=== PATIENT | female | born 2000 | race African-American/Black ===

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

== ENCOUNTER 2019-01-07 10:01 | Emergency (ER) | payer SELFPAY ==
[~2019-01-07] VITALS: Ht 160 cm; Wt 44.5 kg
[2019-01-07 10:23] VITALS: BP 107/58
--- NOTE | 2019-01-07 11:03 | PHYS DOC ---
Past Medical History Past Medical History: No Pertinent History Past Surgical History: No Surgical History Alcohol Use: None Drug Use: None Adult General Chief Complaint Chief Complaint: BACK PAIN - NO INJURY [facility] HPI Patient is a 18 year old AA female who presents to the emergency Department today with complaints of left lower back pain for the last week. Patient denies any known injury, fall, or trauma. She only rates the pain an 8 out of 10 on the pain scale, there are no alleviating factors. The pain increases with palpation. ROS Patient denies any fever, dysuria, hematuria, nausea, vomiting, or diarrhea. She denies any irregular vaginal discharge. Patient reports increased urinary frequency with the onset of the back pain. She denies any numbness, tingling, or weakness of her lower extremities. She denies any radiation of the back pain into her left leg. Patient also denies any cough, shortness of breath, ear pain, sore throat, or weakness. All other ROS is neg unless otherwise noted in HPI. Review of Systems Review of Systems See Above Allergies Allergies Allergies Coded Allergies Type Severity Reaction Last Updated Verified No Known Drug Allergies 03/21/14 No Physical Exam Physical Exam See Above Constitutional: Well developed, well nourished, no acute distress, non-toxic appearance. [] HENT: Normocephalic, atraumatic, bilateral external ears normal, oropharynx moist, no oral exudates, nose normal. [] Eyes: PERRLA, EOMI, conjunctiva normal, no discharge. [] Neck: Normal range of motion, no stridor. [] Cardiovascular:Heart rate regular rhythm, no murmur [] Lungs & Thorax: Bilateral breath sounds clear to auscultation [] Skin: Warm, dry, no erythema, no rash. [] Back: No bony tenderness, L CVA tenderness. [] Extremities: No cyanosis, ROM intact, no edema. [] Neurologic: Alert and oriented X 3, no focal deficits noted. [] Psychologic: Affect normal, judgement normal, mood normal. [] Current Patient Data Vital Signs Vital Signs Date Time Temp Pulse Resp B/P (MAP) Pulse Ox O2 Delivery O2 Flow Rate FiO2 01/07/19 10:23 99.0 104 18 107/58 (74) 99 Room Air 99.0 Lab Values Laboratory Tests Test 01/07/19 10:55 01/07/19 10:58 Urine Collection Type Void Urine Color Misty Urine Clarity Cloudy Urine pH 6.0 Urine Specific [place] 1.020 Urine Protein 30 mg/dL (NEG-TRACE) Urine Glucose (UA) Negative mg/dL (NEG) Urine Ketones (Stick) Negative mg/dL (NEG) Urine Blood Negative (NEG) Urine Nitrite Negative (NEG) Urine Bilirubin Small (NEG) Urine Urobilinogen Dipstick 1.0 mg/dL (0.2 mg/dL) Urine Leukocyte Esterase Large (NEG) Urine RBC 0 /HPF (0-2) Urine WBC Tntc /HPF (0-4) Urine Squamous Epithelial Cells Occ /LPF Urine Bacteria Moderate /HPF (0-FEW) POC Urine HCG, Qualitative Hcg negative (Negative) EKG EKG [] Radiology/Procedures Radiology/Procedures [] Course & Med Decision Making Course & Med Decision Making Pertinent Labs and Imaging studies reviewed. (See chart for details) [] Dragon Disclaimer Dragon Disclaimer This electronic medical record was generated, in whole or in part, using a voice recognition dictation system. Departure Departure Impression: Primary Impression: Urinary tract infection Disposition: HOME, SELF-CARE Condition: STABLE Referrals: NO PCP (PCP) Patient Instructions: Urinary Tract Infection, [id number] Additional Instructions: Fill prescription(s) and use as directed. Avoid bladder irritants such as caffeine, carbonation, and spicy foods. Increase clear fluids. Follow up with your primary care doctor if symptoms persist, return to the ER if symptoms worsen. Scripts Cephalexin (CEPHALEXIN) 500 Mg Capsule 1 CAP PO BID for 7 Days, #14 CAP 0 Refills Prov: SAHARA SIMON FERRY ENGINEER 01/07/19 Problem Qualifiers Primary Impression: Urinary tract infection Urinary tract infection type: site unspecified Hematuria presence: without hematuria Qualified Codes: N39.0 - Urinary tract infection, site not specified SAHARA SIMON FERRY ENGINEER Jan 07, 2019 11:03
[2019-01-07 11:09] LABS: BILIRUBIN,URINE SMALL (NEG); CLARITY,URINE CLOUDY; COLOR,URINE AMBER; NITRITE,URINE NEGATIVE (NEG); PROTEIN,URINE 30 mg/dL (NEG-TRACE)
[2019-01-07 11:18] LABS: SQUAMOUS EPITHELIAL CELL,UR OCC /LPF
[2019-01-07 11:19] LABS: BACTERIA,URINE MODERATE /HPF (0-FEW); RBC,URINE 0 /HPF (0-2); WBC,URINE TNTC /HPF (0-4)
[2019-01-07] MEDS ORDERED: CEPH500C PO (11:50)
== END 2019-01-07 12:05 | disposition home or self-care (01) ==
LOC: ER 10:01
DX: N39.0 Urinary tract infection, site not specified (principal)
CPT/HCPCS: 81001; 81025; 87086; 87186; 99284

== ENCOUNTER 2020-06-09 17:00 | Emergency (ER) | payer OTHER ==
[~2020-06-09] VITALS: Ht 154.9 cm; Wt 50.0 kg
[~2020-06-09 17:00] MED LIST changes: +CEPH500C PO
[2020-06-09 18:26] LABS: AMPHETAMINE/METHAMPHETAMINE NEG (NEG); BARBITURATES NEG (NEG); BENZODIAZEPINES NEG (NEG); CANNABINOIDS NEG (NEG); COCAINE NEG (NEG); METHADONE NEG (NEG); OPIATES NEG (NEG); PHENCYCLIDINE NEG (NEG)
[2020-06-09 18:27] LABS: BILIRUBIN,URINE NEGATIVE (NEG); CLARITY,URINE CLEAR; COLOR,URINE YELLOW; NITRITE,URINE NEGATIVE (NEG); PROTEIN,URINE NEGATIVE (NEG-TRACE)
[2020-06-09] MEDS ORDERED: IV NORMAL SALINE 1000ML BAG 1,000 ML IV SCH (18:30)
[2020-06-09 18:47] LABS: BASO # 0.1 x10^3/uL (0.0-0.2); BASO % 1 % (0-3); EOS # 0.1 x10^3/uL (0.0-0.7); EOS % 2 % (0-3); HEMATOCRIT 40.9 % (36.0-47.0); HEMOGLOBIN 14.2 g/dL (12.0-15.5); LYMPH # 2.1 x10^3/uL (1.0-4.8); LYMPH % 30 % (24-48); MEAN CORPUSCULAR HEMOGLOBIN 32 pg (25-35); MEAN CORPUSCULAR HGB CONC 35 g/dL (31-37); MEAN CORPUSCULAR VOLUME 93 fL (79-100); MONO # 0.7 x10^3/uL (0.0-1.1); MONO % 9 % (0-9); NEUT # 4.3 x10^3/uL (1.8-7.7); NEUT % 59 % (31-73); PLATELET COUNT 281 x10^3/uL (140-400); RED CELL DISTRIBUTION WIDTH 12.7 % (11.5-14.5); WHITE BLOOD COUNT 7.2 x10^3/uL (4.0-11.0)
[2020-06-09 18:48] LABS: BACTERIA,URINE FEW /HPF (0-FEW)
[2020-06-09 18:49] LABS: RBC,URINE 0 /HPF (0-2)
[2020-06-09 19:05] LABS: CALCIUM 9.4 mg/dL (8.5-10.1); CREATININE 0.5 mg/dL (0.6-1.0); GFR 190.3; POTASSIUM 3.7 mmol/L (3.5-5.1)
--- NOTE | 2020-06-09 19:06 | PHYS DOC ---
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 She takes her last menstrual period was 11/14/2019. Patient denies any pain at this time. Patient denies nausea, vomiting, urinary symptoms, diarrhea, constipation, fever, chest pain, cough, shortness of breath, headache, dizziness, abnormal vaginal discharge, abnormal vaginal bleeding. 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 Her urinalysis here in the ED is positive for . (GATO ROMERO APRN) Review of Systems: Review of Systems: Constitutional: Denies fever or chills. [] Eyes: Denies change in visual acuity. [] HENT: Denies nasal congestion or sore throat. [] Respiratory: Denies cough or shortness of breath. [] Cardiovascular: Denies chest pain or edema. [] GI: + Intermittent left lower abdominal pain, denies nausea, vomiting, bloody stools or diarrhea. [] : Denies dysuria. [] Musculoskeletal: Denies back pain or joint pain. [] Integument: Denies rash. [] Neurologic: Denies headache, focal weakness or sensory changes. [] Endocrine: Denies polyuria or polydipsia. [] Lymphatic: Denies swollen glands. [] Psychiatric: Denies depression or anxiety. 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 Risk Scores: Score 0 - 3: 2.5% MACE over next 6 weeks - Discharge Home Score 4 - 6: 20.3% MACE over next 6 weeks - Admit for Clinical Observation Score 7 - 10: 72.7% MACE over next 6 weeks - Early Invasive Strategies (GATO ROMERO APRN) Current Medications: Current Medications Medications (Trade) Dose Ordered Sig/Emma Start Time Stop Time Status Last Admin Dose Admin Sodium Chloride 1,000 ml @ 1,000 mls/hr Q1H 06/09/20 18:30 06/09/20 18:26 DC (BRYANNA ROMEROTAMMIE Mcgraw APRN) Allergies: Allergies: Allergies Coded Allergies Type Severity Reaction Last Updated Verified No Known Drug Allergies 03/21/14 No (MUKESH ROMERORa Mcgraw APRN) Physical Exam: PE: Constitutional: Well developed, well nourished, no acute distress, non-toxic appearance. [] HENT: Normocephalic, atraumatic, bilateral external ears normal, oropharynx moist, no oral exudates, nose normal. [] Eyes: PERRLA, EOMI, conjunctiva normal, no discharge. [] Neck: Normal range of motion, no tenderness, supple, no stridor. [] Cardiovascular:Heart rate regular rhythm, no murmur [] Lungs & Thorax: Bilateral breath sounds clear to auscultation [] Abdomen: Bowel sounds normal, soft, no tenderness, no masses, no pulsatile masses. [] Skin: Warm, dry, no erythema, no rash. [] Back: No tenderness, no CVA tenderness. [] Extremities: No tenderness, no cyanosis, no clubbing, ROM intact, no edema. [] Neurologic: Alert and oriented X 3, normal motor function, normal sensory function, no focal deficits noted. [] Psychologic: Affect normal, judgement normal, mood normal. Normal physical exam [] (ROSE MARIEBRYANNA LARIOSTAMMIE Mcgraw APRN) Current Patient Data: Labs: Laboratory Tests Test 06/09/20 17:45 06/09/20 17:55 Urine Collection Type Unknown Urine Color Yellow Urine Clarity Clear Urine pH 7.0 (<5.0-8.0) Urine Specific [place] 1.025 (1.000-1.030) Urine Protein Negative mg/dL (NEG-TRACE) Urine Glucose (UA) Negative mg/dL (NEG) Urine Ketones (Stick) Negative mg/dL (NEG) Urine Blood Negative (NEG) Urine Nitrite Negative (NEG) Urine Bilirubin Negative (NEG) Urine Urobilinogen Dipstick 1.0 mg/dL (0.2 mg/dL) Urine Leukocyte Esterase Negative (NEG) Urine RBC 0 /HPF (0-2) Urine WBC 5-10 /HPF (0-4) Urine Squamous Epithelial Cells Mod /LPF Urine Bacteria Few /HPF (0-FEW) Urine Mucus Mod /LPF Urine Opiates Screen Neg (NEG) Urine Methadone Screen Neg (NEG) Urine Barbiturates Neg (NEG) Urine Phencyclidine Screen Neg (NEG) Urine Amphetamine/Methamphetamine Neg (NEG) Urine Benzodiazepines Screen Neg (NEG) Urine Cocaine Screen Neg (NEG) Urine Cannabinoids Screen Neg (NEG) Urine Ethyl Alcohol Pos (NEG) POC Urine HCG, Qualitative Hcg positive (Negative) Vital Signs: Vital Signs Date Time Temp Pulse Resp B/P (MAP) Pulse Ox O2 Delivery O2 Flow Rate FiO2 06/09/20 17:40 98.5 76 16 115/59 (77 100 Room Air 98.5 (GATO ROMERO APRN) EKG: EKG: [] (GATO ROMERO APRN) Radiology/Procedures: Radiology/Procedures: [] Impression: [facility] [address] [place], [place] [id number] IMAGING REPORT Signed PATIENT: FUAD DODSON ACCOUNT: [id number] : 2000 LOCATION: ER AGE: 19 SEX: F EXAM STATUS: REG ER ORD. PHYSICIAN: GATO ROMERO APRN REASON: , left abd cramping, PROCEDURE: OB <14 WKS W/TV US OB <14 WKS +TV History: Reason: , left abd cramping, / Spl. Instructions: / History: Comparison: None. Technique: Grayscale and color Doppler imaging of the pelvis was performed using transabdominal and transvaginal technique. Findings: The uterus measures 8.6 x 4.7 x 4.0 cm. Single intrauterine gestational sac with regular appearance. Gestational sac measures 0.60 m. Estimated gestational age by ultrasound 5 weeks 2 days. pole and yolk sac are not identified. Right ovary measures 3.9 x 2.5 x 1.9 cm. Left ovary measures 2.7 x 2.0 x 1.7 cm. Normal Doppler flow to the ovaries bilaterally. No adnexal masses are seen. IMPRESSION: 1. Single intrauterine gestational sac with estimated gestational age 5 weeks 2 days. No pole is identified, may relate to early . Recommend short-term ultrasound follow-up and serial beta-hCG testing. 2. Trace free fluid adjacent to the right ovary. Electronically signed by: Yo Ledesma DO (06/09/2020 9:00 PM) [facility] DICTATED and SIGNED BY: YO LEDESMA DO DATE: 06/09/20 [id number] 0 (GATO ROMERO APRN) Course & Med Decision Making: Course & Med Decision Making Pertinent Labs and Imaging studies reviewed. (See chart for details) See HPI. Abdomen is soft and nontender. Alert and oriented x4. Ambulatory w ith steady gait. Skin pink warm and dry. Vital signs within normal limits. No CVA tenderness. Patient's urinalysis is positive for alcohol. There is no infection. She denies any concerns for sexually transmitted diseases. However I did send off her urine for chlamydia and gonorrhea. [] (GATO ROMERO APRN) Course & Med Decision Making I oversaw on the above date of service of this patient and discussed the care with the PAINTER ORDNANCE. I agree with the findings, plan of care, and disposition as documented. (DAYO CHAPPELL DO) Dragon Disclaimer: Dragon Disclaimer: This electronic medical record was generated, in whole or in part, using a voice recognition dictation system. (GATO ROMERO APRN) Departure Departure Impression: Primary Impression: Positive test Disposition: 01 DC HOME SELF CARE/HOMELESS Condition: STABLE Referrals: NO PCP (PCP) Patient Instructions: ABCs of , Abdominal Pain During Additional Instructions: Follow-up with your OB doctor soon as possible. Begin taking vitamins. Do not drink any alcohol know that you are . Drink plenty of fluids. GATO ROMERO APRN Jun 09, 2020 19:06 DAYO CHAPPELL DO Jun 11, 2020 00:29
[2020-06-09 19:07] LABS: ALBUMIN 4.2 g/dL (3.4-5.0); ALBUMIN/GLOBULIN RATIO 1.1 (1.0-1.7); TOTAL BILIRUBIN 0.3 mg/dL (0.2-1.0); TOTAL PROTEIN 8.2 g/dL (6.4-8.2)
[2020-06-09 21:00] VITALS: BP 110/60
--- NOTE | 2020-06-09 21:03 | RAD ---
US OB <14 WKS +TV History: Reason: , left abd cramping, / Spl. Instructions: / History: Comparison: None. Technique: Grayscale and color Doppler imaging of the pelvis was performed using transabdominal and t ransvaginal technique. Findings: The uterus measures 8.6 x 4.7 x 4.0 cm. Single intrauterine gestational sac with regular appearance. Gestational sac measures 0.60 m. Estimat ed gestational age by ultrasound 5 weeks 2 days. pole and yolk sac are not identified. Right ovary measures 3.9 x 2.5 x 1.9 cm. Left ovary measures 2.7 x 2.0 x 1.7 cm. Normal Doppler flow to the ovaries bilaterally. No adnexal masses are seen. IMPRESSION: 1. Single intrauterine gestational sac with estimated gestational age 5 weeks 2 days. No pole is identified, may relate to early . Recommend short-term ultrasound follow-up and serial be ta-hCG testing. 2. Trace free fluid adjacent to the right ovary. Electronically signed by: Yo Ledesma DO (06/09/2020 9:00 PM) [facility]
== END 2020-06-09 21:00 | disposition home or self-care (01) ==
LOC: ER 17:00
DX: R10.32 Left lower quadrant pain (principal); Z3A.01 Less than 8 weeks gestation of pregnancy
CPT/HCPCS: 36415; 76801; 76817; 80053; 80307; 81001; 81025; 83690; 84702; 85025; 87086; 87491; 87591; 99284

== ENCOUNTER 2020-11-04 13:48 | Emergency (ER) | payer OTHER ==
[~2020-11-04] VITALS: Ht 154.9 cm; Wt 47.5 kg
[2020-11-04 14:30] VITALS: BP 120/62
[2020-11-04] MEDS ORDERED: LIDO:MAALOX 1:1 20 ML SINGLE DOSE. SWSW ONE (14:30)
--- NOTE | 2020-11-04 14:38 | ED.ADGEN ---
Past Medical History Past Medical History: No Pertinent History Past Surgical History: No Surgical History Smoking Status: Never Smoker Alcohol Use: None Drug Use: None General Adult EDM: Chief Complaint: HEARTBURN/GI DISTRESS HPI: HPI: Patient is a 19 year old 19-year-old G2, P1 at 6 months gestational age coming in for substernal burning pain. Patient says she has been having the pain intermittently for the entire . 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 Is here today because she feels like it is getting worse. Is worse with food and laying flat. This complicated by IU GFR. Denies any vomiting, fevers, but states she has had occasional loose stools. Review of Systems: Review of Systems: Constitutional: Denies fever or chills. [] Eyes: Denies change in visual acuity. [] HENT: Denies nasal congestion or sore throat. [] Respiratory: Denies cough or shortness of breath. [] Cardiovascular: Denies chest pain or edema. [] GI: Denies abdominal pain, nausea, vomiting, bloody stools or diarrhea. [] : Denies dysuria. [] Musculoskeletal: Denies back pain or joint pain. [] Integument: Denies rash. [] Neurologic: Denies headache, focal weakness or sensory changes. [] Endocrine: Denies polyuria or polydipsia. [] Lymphatic: Denies swollen glands. [] Psychiatric: Denies depression or anxiety. [] Current Medications: Current Medications Medications (Trade) Dose Ordered Sig/Emma Start Time Stop Time Status Last Admin Dose Admin Multi-Ingredient Mouthwash/Gargle (Gi Cocktail) 20 ml 1X ONCE 11/04/20 14:30 11/04/20 14:31 DC 11/04/20 14:38 20 ML Allergies: Allergies: Allergies Coded Allergies Type Severity Reaction Last Updated Verified No Known Drug Allergies 03/21/14 No Physical Exam: PE: Constitutional: Well developed, well nourished, no acute distress, non-toxic appearance. [] HENT: Normocephalic, atraumatic, bilateral external ears normal, oropharynx moist, no oral exudates, nose normal. [] Eyes: PERRLA, EOMI, conjunctiva normal, no discharge. [] Neck: Normal range of motion, no tenderness, supple, no stridor. [] Cardiovascular:Heart rate regular rhythm, no murmur [] Lungs & Thorax: Bilateral breath sounds clear to auscultation [] Abdomen: Bowel sounds normal, soft, no tenderness, no masses, no pulsatile masses. [] Skin: Warm, dry, no erythema, no rash. [] Back: No tenderness, no CVA tenderness. [] Extremities: No tenderness, no cyanosis, no clubbing, ROM intact, no edema. [] Neurologic: Alert and oriented X 3, normal motor function, normal sensory function, no focal deficits noted. [] Psychologic: Affect normal, judgement normal, mood normal. [] Current Patient Data: Labs: Laboratory Tests Test 11/04/20 14:24 Urine Collection Type Unknown Urine Color Misty Urine Clarity Cloudy Urine pH 6.5 (<5.0-8.0) Urine Specific [place] >=1.030 (1.000-1.030) Urine Protein Negative mg/dL (NEG-TRACE) Urine Glucose (UA) Negative mg/dL (NEG) Urine Ketones (Stick) 15 mg/dL (NEG) Urine Blood Negative (NEG) Urine Nitrite Negative (NEG) Urine Bilirubin Small (NEG) Urine Urobilinogen Dipstick 4.0 mg/dL (0.2 mg/dL) Urine Leukocyte Esterase Small (NEG) Urine RBC 1-2 /HPF (0-2) Urine WBC 1-4 /HPF (0-4) Urine Squamous Epithelial Cells Many /LPF Urine Bacteria Many /HPF (0-FEW) Urine Mucus Marked /LPF Vital Signs: Vital Signs Date Time Temp Pulse Resp B/P (MAP) Pulse Ox O2 Delivery O2 Flow Rate FiO2 11/04/20 13:58 98.3 80 16 109/52 (71) 100 Room Air 98.3 EKG: EKG: [] Heart Score: C/O Chest Pain: No Risk Factors: Risk Factors: DM, Current or recent (<one month) smoker, HTN, HLP, family history of CAD, obesity. Risk Scores: Score 0 - 3: 2.5% MACE over next 6 weeks - Discharge Home Score 4 - 6: 20.3% MACE over next 6 weeks - Admit for Clinical Observation Score 7 - 10: 72.7% MACE over next 6 weeks - Early Invasive Strategies Radiology/Procedures: Radiology/Procedures: [] Course & Med Decision Making: Course & Med Decision Making When going back to reevaluate the patient after GI cocktail and discuss urinary symptoms the patient was found to have eloped. Room was empty and gown was on the bed. Dragon Disclaimer: Dragon Disclaimer: This electronic medical record was generated, in whole or in part, using a voice recognition dictation system. Departure Departure Impression: Primary Impression: Epigastric abdominal pain affecting Disposition: 07 LEFT AWOL/ELOPED Condition: STABLE Referrals: NO PCP (PCP) MONIQUE BYRD MD Nov 04, 2020 14:38
[2020-11-04 14:45] LABS: BILIRUBIN,URINE SMALL (NEG); CLARITY,URINE CLOUDY; COLOR,URINE AMBER; NITRITE,URINE NEGATIVE (NEG); PH,URINE 6.5 (<5.0-8.0); PROTEIN,URINE NEGATIVE (NEG-TRACE)
[2020-11-04 14:52] LABS: BACTERIA,URINE MANY /HPF (0-FEW)
== END 2020-11-04 15:00 | disposition left against medical advice (07) ==
LOC: ER 13:48
DX: O26.892 Other specified pregnancy related conditions, second trimester (principal); R10.13 Epigastric pain; Z3A.24 24 weeks gestation of pregnancy
CPT/HCPCS: 81001; 87086; 99283

== ENCOUNTER 2021-02-17 17:31 | Emergency (ER) | payer OTHER ==
[~2021-02-17] VITALS: Ht 154.9 cm; Wt 45.5 kg
[2021-02-17 17:50] VITALS: BP 117/65
--- NOTE | 2021-02-17 18:30 | PHYS DOC ---
Past Medical History Past Medical History: No Pertinent History (JUNI JASSO) Past Surgical History: No Surgical History (JUNI JASSO) Smoking Status: Never Smoker Alcohol Use: None Drug Use: None (JUNI JASSO) General Adult EDM: Chief Complaint: SORE THROAT HPI: HPI: Patient is a 20 year old female who presents with 5-day history of sore throat. Patient states that her symptoms improved yesterday, but today it returned. She denies history of seasonal allergies or asthma. Patient states that her son had a cough last week, but he is better now. She denies having a cough, stuffy nose, fever. She took TheraFlu at home once, which did improve her symptoms. Patient has no other complaints at this time. (JUNI JASSO) Review of Systems: Review of Systems: ROS negative except as mentioned in HPI. (JUNI JASSO) Heart Score: C/O Chest Pain: No (JUNI JASSO) Allergies: Allergies: Allergies Coded Allergies Type Severity Reaction Last Updated Verified No Known Drug Allergies 03/21/14 No (JUNI JASSO) Physical Exam: PE: Constitutional: Well developed, well nourished, no acute distress, non-toxic appearance. HENT: Normocephalic, atraumatic, bilateral external ears normal, oropharynx moist, no oral exudates, tonsils 1+ bilaterally, turbinates moist and pink without swelling bilaterally. Eyes: Conjunctiva normal, no discharge. Neck: Normal range of motion, no lymphadenopathy, supple, no stridor. Cardiovascular: Heart rate regular rhythm, no murmur. Lungs & Thorax: Bilateral breath sounds clear to auscultation. Neurologic: Alert and oriented X 3, normal motor function, normal sensory function, no focal deficits noted. (JUNI JASSO) Current Patient Data: Vital Signs: Vital Signs Date Time Temp Pulse Resp B/P (MAP) Pulse Ox O2 Delivery O2 Flow Rate FiO2 02/17/21 17:50 100.2 114 16 117/65 (82) 98 Room Air 100.2 (JUNI JASSO) Course & Med Decision Making: Course & Med Decision Making Pertinent Labs and Imaging studies reviewed. (See chart for details) Patient Centor score is 1, so strep testing will be deferred. Patient is instructed to use [id number] cold and sinus medication, as it has helped her earlier in the week. Patient feels reassured that strep throat is unlikely. She will be discharged home. (JUNI JASSO) Course & Med Decision Making Treatment plan and care provided by [facility]. I was available for consult. Chart reviewed. (THAO KAMARA DO) Dragon Disclaimer: Dragon Disclaimer: This electronic medical record was generated, in whole or in part, using a voice recognition dictation system. (JUNI JASSO) Departure Departure Impression: Primary Impression: Viral pharyngitis Disposition: HOME / SELF CARE / HOMELESS Condition: STABLE Referrals: NOBLE RAND MD (PCP) Patient Instructions: Viral and Bacterial Pharyngitis, [id number] Additional Instructions: At this point in time, antibiotics not warranted to treat your throat discomfort. You may use [id number] cold and flu medications, as well as warm water salt gargles and ingesting hot fluids to alleviate discomfort. Berna uribe return to the emergency department if you develop a fever above 100.4 F, have increased pain, or unable to swallow. JUNI JASSO Feb 17, 2021 18:30 THAO KAMARA DO Feb 18, 2021 23:42
== END 2021-02-17 18:35 | disposition home or self-care (01) ==
LOC: ER 17:31
DX: J02.8 Acute pharyngitis due to other specified organisms (principal); B97.89 Other viral agents as the cause of diseases classified elsewhere
CPT/HCPCS: 99282